=== PATIENT | female | born 1995 | race Hispanic/Latino ===

== ENCOUNTER 2018-03-13 16:09 | Outpatient (CLI) | payer MEDICAID | END 2018-03-13 16:10 | disposition home or self-care (01) | LOC: BICULT 16:09 | PROVIDERS: ATTEND Family Medicine | DX: N83.209 Unspecified ovarian cyst, unspecified side (principal) | CPT/HCPCS: 76856 ==

== ENCOUNTER 2023-05-14 15:32 | Outpatient (CLI) | payer OTHER | END 2023-05-14 15:33 | disposition home or self-care (01) | LOC: BICULT 15:32 | PROVIDERS: ATTEND Family Medicine | DX: O09.892 Supervision of other high risk pregnancies, second trimester (principal); Z3A.25 25 weeks gestation of pregnancy | CPT/HCPCS: 76805 ==